=== PATIENT | female | born 1990 | race Hispanic/Latino ===

== ENCOUNTER 2017-11-16 21:41 | Emergency (ER) | payer MEDICAID | END 2017-11-16 22:44 | disposition home or self-care (01) | LOC: EDH 21:41 | DX: F41.9 Anxiety disorder, unspecified (principal); F32.9 Major depressive disorder, single episode, unspecified | CPT/HCPCS: 93005 ==

== ENCOUNTER 2020-02-01 07:26 | Emergency (ER) | payer MEDICAID, OTHER ==
[2020-02-01 07:59] LABS: BASOPHILS % (AUTO) 0.4 % (0.0-5.0); EOSINOPHILS % (AUTO) 0.4 % (0.0-8.0); HEMATOCRIT 37.2 % (36-48); LYMPHOCYTES % (AUTO) 9.3 % (21.0-51.0); MEAN CORPUSCULAR HEMOGLOBIN 18.3 pg (27.0-33.0); MEAN CORPUSCULAR VOLUME 65.6 fL (79-99); MONOCYTES % (AUTO) 3.2 % (3.0-13.0); NEUTROPHILS % (AUTO) 86.2 % (40.0-77.0); PLATELET COUNT (AUTO) 236 K/uL (130-400); RED BLOOD CELL COUNT(AUTO) 5.67 MIL/uL (4.00-5.50); RED CELL DISTRIBUTION WIDTH 19.6 % (11.0-15.5); WHITE BLOOD COUNT (AUTO) 8.3 K/uL (4.8-10.8)
[2020-02-01] MEDS ORDERED: DiphenhydrAMINE HCL 50 MG/ML VIAL ONE (08:00)
[2020-02-01 08:16] LABS: HCG,QUAL RESULT NEGATIVE (NEGATIVE)
[2020-02-01 08:21] LABS: AMPHET/METH SCREEN,URINE NEGATIVE (NEGATIVE); BARBITURATE SCREEN, URINE NEGATIVE (NEGATIVE); BENZODIAZEPINES SCREEN,URINE NEGATIVE (NEGATIVE); CANNABINOID SCREEN,URINE POSITIVE (NEGATIVE); COCAINE SCREEN,URINE POSITIVE (NEGATIVE); OPIATE SCREEN,URINE NEGATIVE (NEGATIVE); PHENCYCLIDINE SCREEN,URINE NEGATIVE (NEGATIVE)
[2020-02-01 08:40] LABS: CREATININE 0.8 mg/dL (0.5-1.5)
[2020-02-01 08:42] LABS: POTASSIUM 2.8 mmol/L (3.5-5.1)
[2020-02-01 08:44] LABS: BAND NEUTROPHILS % (MANUAL) 5 % (0-2); EOSINOPHILS % (MANUAL) 1 % (1-6); LYMPHOCYTES % (MANUAL) 10 % (22-44); MAN.DIFF COMMENT-IMPRESSION MANUAL DIFFERENTIAL; MONOCYTES % (MANUAL) 1 % (2-9); PLATELET MORPHOLOGY COMMENT ADEQUATE; SEGMENTED NEUTROPHILS % 83 % (40-70)
[2020-02-01] MEDS ORDERED: ONDANSETRON HCL 4 MG/2 ML VIAL ONE ×2 (09:01→10:34)
[2020-02-01] MEDS ORDERED: POTASSIUM BICARB/CIT AC 25 MEQ TABLET.EFF ONE (09:02)
[2020-02-01] MEDS ORDERED: LEVETIRACETAM 500 MG TABLET PO ONE (09:02)
[2020-02-01] MEDS ORDERED: ACETAMINOPHEN 325 MG TAB ONE (09:08)
[2020-02-01] MEDS ORDERED: LORAZEPAM 2 MG/ML 1 ML VIAL ONE (10:12)
== END 2020-02-01 12:25 | disposition home or self-care (01) ==
LOC: EDH 07:26
DX: G40.89 Other seizures (principal); E87.6 Hypokalemia; E86.0 Dehydration; R19.7 Diarrhea, unspecified; R11.10 Vomiting, unspecified; F41.9 Anxiety disorder, unspecified; F32.9 Major depressive disorder, single episode, unspecified; Z98.51 Tubal ligation status; Z79.899 Other long term (current) drug therapy
CPT/HCPCS: 36415; 80048; 80305; 81025; 85025; 93005; 96361; 96374; 96375; 96376; 99284; J1200; J2060; J2405 ×2